=== PATIENT | male | born 1945 | race Caucasian/White ===

== ENCOUNTER 2021-05-31 19:13 | Emergency (ER) | payer BC, MEDICARE ==
[~2021-05-31] VITALS: Ht 185.4 cm; Wt 84.8 kg
[2021-05-31 19:29] VITALS: BP_SYST 137
--- NOTE | 2021-05-31 20:56 | NUR ---
Patient to ER bed 04 to gown for evaluation. Side rails up.
--- NOTE | 2021-05-31 21:02 | NUR ---
DR RUSH IN ROOM FOR EXAM
--- NOTE | 2021-05-31 21:06 | NUR ---
PT COMES FOR GRADUAL ONSET FRONTAL HEADACHE-DULL IN SENSATION FOR THE LAST 6 MONTHS-INTERMITTENT. HE CAME TO ER TODAY BECAUSE HE HAD DIZZINESS WITH IT, NO SYNCOPAL EPISODE. REPORTS VISUAL DISTRUBANCES AT TIME, BUT NONE AT THSI TIME. DENIES ANY CURRENT HEARING LOSS, PT NORMALTENSIVE. VSS. SKIN W/D/I. RESP EVEN AND UNLABORED, ON RA @98%. AT BEDSIDE. SAFETY PRECUATIONS IN PLACE, WILL CONT TO MONITOR.
[2021-05-31 21:10] LABS: BASOPHILS # (AUTO) 0.1 K/uL (0.0-0.2); BASOPHILS % (AUTO) 0.8 % (0.0-2.0); EOSINOPHILS % (AUTO) 0.4 % (0.0-4.0); HEMATOCRIT 47.4 % (36-54); HEMOGLOBIN 15.9 g/dL (14.0-18.0); LYMPHOCYTES # (AUTO) 1.8 K/uL (1.0-5.5); LYMPHOCYTES % (AUTO) 17.8 % (20.5-51.5); MEAN CORPUSCULAR HEMOGLOBIN 33 pg (27-31); MEAN CORPUSCULAR HGB CONC 34 % (32-36); MEAN CORPUSCULAR VOLUME 97 fL (79.0-98.0); MONOCYTES # (AUTO) 0.6 K/uL (0.0-1.0); MONOCYTES % (AUTO) 6.3 % (1.7-9.3); NEUTROPHILS # (AUTO) 7.4 K/uL (1.8-7.7); NEUTROPHILS % (AUTO) 74.7 % (40.0-70.0); PLATELET COUNT (AUTO) 134 K/uL (130-430); RED BLOOD CELL COUNT(AUTO) 4.88 MIL/uL (4.2-6.2); RED CELL DISTRIBUTION WIDTH 13.4 % (9.0-15.0); WHITE BLOOD COUNT (AUTO) 9.9 K/uL (4.8-10.8)
[2021-05-31 21:22] LABS: ANION GAP 6 (5-15); CHLORIDE 104 mmol/L (98-107); CREATININE 1.01 mg/dL (0.55-1.30); GLUCOSE 97 mg/dL (70-99); SODIUM SERUM 138 mmol/L (136-145); UREA NITROGEN, BLOOD 19 mg/dL (8-21)
[2021-05-31 21:31] LABS: ALANINE AMINOTRANSFERASE 30 U/L (12-78); ALBUMIN 4.1 g/dL (3.4-4.8); ASPARTATE AMINOTRANSFERASE 17 U/L (10-37); TOTAL BILIRUBIN 0.3 mg/dL (0.0-1.0)
[2021-05-31] MEDS ORDERED: ACET-2634 PO (21:40)
--- NOTE | 2021-05-31 21:53 | NUR ---
Patient given written and verbal discharge instructions and verbalizes understanding. ER MD discussed with patient the results and treatment provided. Patient in stable condition. ID arm band removed. Rx of ACETAMINOPHEN ES given. Patient educated on pain management and to follow up with PMD. Pain Scale . Opportunity for questions provided and answered. Medication side effect fact sheet provided.
[2021-05-31 21:54] VITALS: BP_SYST 139
== END 2021-05-31 21:54 | disposition home or self-care (01) ==
LOC: SED 19:13
DX: R55 Syncope and collapse (principal); R51.9 Headache, unspecified
CPT/HCPCS: 36415; 70450-TC; 76376; 80053; 84484; 85025; 93005; 99284